=== PATIENT | female | born 1960 | race African-American/Black ===

== ENCOUNTER → 2016-05-26 | Outpatient (RCR) | payer OTHER, MEDICAID ==
[~2016-05-26] MED LIST: BP MED; MOTRIN600 MG PO; PRILOSEC40 MG PO
== END | disposition home or self-care (01) ==
LOC: PTY 09:45
PROVIDERS: ATTEND Internal Medicine
DX: M79.1 Myalgia (principal); M51.26 Other intervertebral disc displacement, lumbar region
CPT/HCPCS: 97110; 97162; G0283

== ENCOUNTER 2016-06-02 08:40 | Outpatient (RCR) | payer OTHER, MEDICAID | END 2016-06-26 | disposition home or self-care (01) | LOC: PTY 08:40 | PROVIDERS: ATTEND Internal Medicine | DX: M79.1 Myalgia (principal); M51.26 Other intervertebral disc displacement, lumbar region | CPT/HCPCS: 97110; G0283 ==

== ENCOUNTER 2016-07-24 10:15 | Outpatient (RCR) | payer MEDICAID, OTHER | END 2016-07-26 | disposition home or self-care (01) | LOC: PTY 10:15 | PROVIDERS: ATTEND Internal Medicine | DX: M79.1 Myalgia (principal); M51.26 Other intervertebral disc displacement, lumbar region | CPT/HCPCS: 97110; G0283 ==

== ENCOUNTER 2016-07-28 11:10 | Outpatient (RCR) | payer OTHER | END 2016-08-26 | disposition home or self-care (01) | LOC: PTY 11:10 | PROVIDERS: ATTEND Internal Medicine | DX: M79.1 Myalgia (principal); M51.26 Other intervertebral disc displacement, lumbar region | CPT/HCPCS: 97110; G0283 ==